=== PATIENT | male | born 1965 | race Caucasian/White ===

== ENCOUNTER 2017-09-02 22:56 | Emergency (ER) | payer BC ==
[~2017-09-02] VITALS: Ht 180.3 cm; Wt 138.3 kg
[2017-09-02 23:09] VITALS: Ht 180.3 cm; Wt 138.3 kg
[2017-09-03] MEDS ORDERED: MEDROL DOSE PACK4 MG PO (00:39)
[2017-09-03 01:00] VITALS: BP 149/79
== END 2017-09-03 01:00 | disposition home or self-care (01) ==
LOC: D.ER 22:56
DX: J01.90 Acute sinusitis, unspecified (principal); J06.9 Acute upper respiratory infection, unspecified

== ENCOUNTER → 2018-10-11 15:39 | Outpatient (CLI) | payer BC ==
[~2018-10-11 15:39] MED LIST: MEDROL DOSE PACK4 MG PO
== END | disposition home or self-care (01) ==
LOC: D.US 13:00
PROVIDERS: ATTEND Nurse Practitioner Adult Health
DX: I73.9 Peripheral vascular disease, unspecified (principal)